=== PATIENT | female | born 1945 | race Two or more races ===

== ENCOUNTER 2025-08-07 10:53 | Emergency (ER) | payer OTHER ==
[~2025-08-07] VITALS: Ht 162.6 cm; Wt 72.6 kg
[2025-08-07] MEDS ORDERED: EMSAM (11:57)
[2025-08-07] MEDS ORDERED: AMLODIPINE-OLM1 EAC2 (11:57)
[2025-08-07] MEDS ORDERED: ATORVASTATIN CA10 MG (11:57)
[2025-08-07] MEDS ORDERED: ACETAMINOPHEN 500 MG GEL..CAP PO ONE (13:00)
[2025-08-07] MEDS ORDERED: DEXAMETHASONE SODIUM PHOSPHATE 4 MG/ML VIAL IM ONE (13:00)
[2025-08-07] MEDS ORDERED: KETOROLAC TROMETHAMINE 60 MG VIAL IM ONE (13:00)
[2025-08-07 13:28] LABS: BASO % 0.5 % (0.1-1.2); EOS # 0.08 (0.04-0.54); EOS % 1.1 % (0.7-7.0); LYMPH # 1.65 (1.18-3.74); LYMPH % 21.8 % (19.3-53.1); MEAN PLATELET VOLUME 8.10 fl (9.4-12.4); MONO # 0.84 (0.24-0.82); MONO % 11.1 % (4.7-12.5); NEUT # 4.92 (1.56-6.13); NEUT % 65.1 % (34.0-71.1); RED CELL DISTRIBUTION WIDTH 12.7 % (11.6-14.4)
[2025-08-07 13:52] LABS: INR 1.0
[2025-08-07 14:02] LABS: ALT/SGPT 22.0 U/L (12-78); AST/SGOT 13.0 U/L (15-37); BILIRUBIN TOTAL 0.38 mg/dL (0.3-1.2); BUN CREA RATIO 21.0 (7.0-25.0); CREATININE SERUM 0.76 mg/dL (0.55-1.02); GFR 73.22; GLOBULINA 4.3 G/DL (2.4-3.5); GLUCOSE FASTING 105.0 mg/dL (65-100); OSMOLALITY SERUM 281.0 MOSM/KG (275-295)
[2025-08-07 14:40] LABS: URINE APPEARANCE Clear; URINE BILIRRUBIN Negative (NEGATIVE); URINE BLOOD Trace; URINE COLOR Yellow; URINE GLUCOSE Negative (NEGATIVE); URINE KETONE Negative (NEGATIVE); URINE LEUKOCYTE Negative; URINE NITRATE Negative; URINE PROTEIN Negative (NEGATIVE); URINE UROBILINOGEN 0.2 E.U./dl
[2025-08-07 14:44] LABS: URINE BACTERIA 23.9 uL (0.0-1933); URINE EPITHELIAL CELLS 5.6 uL (0.0-38.8); URINE RBC 4.1 uL (0.0-20.8)
[2025-08-07 16:12] LABS: URINE CAST 0.00 uL (0.0-1.40); URINE WBC 0 uL (0.0-23.2)
[2025-08-07] MEDS ORDERED: [UNRECOGNIZED DRUG - OTHER] VAG (16:38)
[2025-08-07] MEDS ORDERED: IBU800 MG PO (16:38)
== END 2025-08-07 16:55 | disposition home or self-care (01) ==
LOC: ER 10:53
DX: N95.2 Postmenopausal atrophic vaginitis (principal); R10.20 Pelvic and perineal pain unspecified side; F41.9 Anxiety disorder, unspecified; I10 Essential (primary) hypertension
CPT/HCPCS: 36415; 74177; 76830; Q9965